=== PATIENT | female | born 1985 | race Caucasian/White ===

== ENCOUNTER 2019-05-12 18:34 | Inpatient (IN) | payer MEDICARE, MEDICAID ==
[~2019-05-12] VITALS: Ht 162.6 cm; Wt 59.5 kg
[2019-05-12] MEDS ORDERED: FLUO-191 PO (20:25)
[2019-05-12] MEDS ORDERED: ATOM40CA9 PO (20:25)
[2019-05-12] MEDS ORDERED: LURA40 PO (20:25)
[2019-05-12] MEDS ORDERED: OLAN7.5T2 PO (20:25)
[2019-05-12 21:30] LABS: BASOPHILS % (AUTO) 0.3 % (0.0-2.0); EOSINOPHILS % (AUTO) 0 % (1.0-6.0); HEMATOCRIT 42.4 % (36-46); HEMOGLOBIN 14.6 g/dL (12.0-16.0); LYMPHOCYTES # (AUTO) 1.7 K/uL (1.0-4.8); LYMPHOCYTES % (AUTO) 11.3 % (22.0-44.0); MEAN CORPUSCULAR HGB CONC 34.4 G/dL (31.0-37.0); MEAN CORPUSCULAR VOLUME 87 fL (80-100); MONOCYTES # (AUTO) 0.9 K/uL (0.1-1.0); MONOCYTES % (AUTO) 6.1 % (2.0-9.0); NEUTROPHILS # (AUTO) 12.2 K/uL (1.8-7.7); NEUTROPHILS % (AUTO) 82.3 % (40.0-70.0); PLATELET COUNT (AUTO) 268 K/uL (150-450); RED BLOOD CELL COUNT(AUTO) 4.86 MIL/uL (4.00-5.20); RED CELL DISTRIBUTION WIDTH 13.1 % (11.5-14.5)
[2019-05-12] MEDS ORDERED: SODIUM CHLORIDE 0.9% 2,200 ML IV ONE (21:30)
[2019-05-12] MEDS ORDERED: SODIUM CHLORIDE 0.9% 250 ML IV ONE (21:32)
[2019-05-12 21:40] LABS: CALCIUM, TOTAL 9.6 mg/dL (8.8-10.5); CREATININE 1.19 mg/dL (0.60-1.30)
[2019-05-12 21:46] LABS: BILIRUBIN,TOTAL 1.1 mg/dL (0.1-1.0); TOTAL PROTEIN, SERUM 8.4 g/dL (6.4-8.2)
[2019-05-12 22:03] LABS: CREATINE KINASE, TOTAL ONLY 214 U/L (26-192); HCG,QUANTITATIVE < 1 mIU/mL (0-6)
[2019-05-12] MEDS ORDERED: VANCOMYCIN HCL 1 GM/D5% WATER 200 ML IV ONE (22:30)
[2019-05-12] MEDS ORDERED: PIPERACILLIN/TAZO 3.375 GM/D5W 50 ML IV ONE (22:30)
[2019-05-12] MEDS ORDERED: IOVERSOL 350 MG/ML 150 ML VIAL ONE (22:31)
[2019-05-12] MEDS ORDERED: SODIUM CHLORIDE 0.9% 100 ML ONE (22:31)
[2019-05-12 22:45] LABS: ABG A-A DIFF O2 472.1 mmHg (10-20.0); ABG BASE EXCESS -5.6 mmol/L (-2.0-3.0); ABG CARBOXYHEMOGLOBIN 0.3 % (0.0-1.5); ABG HCO3 22.7 mmol/L (22.0-26.0); ABG METHEMOGLOBIN 0.4 % (0.0-1.5); ABG OXYGEN CONTENT 19.5 mL/dL (15.0-23.0); ABG OXYGEN SATURATION 99.3 % (95.0-98.0); ABG OXYHEMOGLOBIN 98.6 % (94.0-100.0); ABG TOTAL HEMOGLOBIN 13.7 G/dL (12.0-18.0); PO2, ARTERIAL BG 227.6 mmHg (92.0-100.0); SOURCE, BLOOD GAS ARTERIAL; TEMPERATURE, FAHRENHEIT, BG 98.6 FAHREN (96.0-98.6)
[2019-05-12 22:46] LABS: ABG PCO2 13 mmHg (35-45); ABG PH 7.666 (7.350-7.450); SITE, BLOOD GAS LFT RADIAL
[2019-05-12 22:47] LABS: O2 DEVICE,BLOOD GAS NON REBREATHER (ROOM AIR)
[2019-05-12 22:57] LABS: INR 1.1 (0.9-1.1); PROTHROMBIN TIME 11.4 SEC (9.4-11.6)
[2019-05-12] MEDS ORDERED: POTASSIUM CHLORIDE 20 MEQ ER TABLET PO ONE (23:15)
[2019-05-12] MEDS: POTASSIUM CHL 10 MEQ/WATER 50 ML IV SCH (23:15)
[2019-05-12 23:33] LABS: APPEARANCE,URINE CLEAR (CLEAR); GLUCOSE, URINE (UA) NEGATIVE (NEGATIVE); KETONES,URINE >=80 mg/dL (NEGATIVE); LEUKOCYTE ESTERASE ,URINE NEGATIVE (NEGATIVE); NITRATE,URINE NEGATIVE (NEGATIVE); OCCULT BLOOD,URINE NEGATIVE (NEGATIVE); PROTEIN,URINE POS 1+ (NEGATIVE)
[2019-05-12 23:36] LABS: BILIRUBIN,URINE PRELIM. POSITIVE (NEGATIVE)
[2019-05-12 23:37] LABS: AMPHET/METH SCREEN,URINE POSITIVE (NEGATIVE); BARBITURATE SCREEN, URINE NEGATIVE (NEGATIVE); BENZODIAZEPINES SCREEN,URINE NEGATIVE (NEGATIVE); CANNABINOID SCREEN,URINE NEGATIVE (NEGATIVE); COCAINE SCREEN,URINE NEGATIVE (NEGATIVE); METHADONE SCREEN, URINE NEGATIVE (NEGATIVE); OPIATE SCREEN,URINE POSITIVE (NEGATIVE); PHENCYCLIDINE SCREEN,URINE NEGATIVE (NEGATIVE)
[2019-05-12 23:40] LABS: BACTERIA,URINE None Seen /HPF (None Seen); FINE GRANULAR CASTS,URINE 0-2 /LPF (None Seen); RBC,URINE 0-2 /HPF (0-2); SQUAMOUS EPITHELIAL CELL,UR Few /LPF (None Seen)
[2019-05-13] MEDS: POTASSIUM CHL 10 MEQ/WATER 50 ML IV SCH ×3 (00:15→03:35)
[2019-05-13 01:04] LABS: D-DIMER 0.61 mg/L FEU (0.00-0.50)
[2019-05-13] MEDS ORDERED: CLINDAMYCIN 600 MG/D5% WATER 50 ML IV ONE (01:15)
[2019-05-13] MEDS ORDERED: ONDANSETRON HCL 4 MG/2 ML VIAL IVP PRN (01:30)
[2019-05-13] MEDS ORDERED: ACETAMINOPHEN 325 MG TABLET PO PRN (01:30)
[2019-05-13] MEDS ORDERED: 0.9% SODIUM CHLORIDE 10 ML SYRINGE IVP PRN (01:30)
[2019-05-13 03:48] VITALS: BP 141/94
[2019-05-13] MEDS ORDERED: INFLUENZA VIRUS VACCINE QVS 2019-20 (3YR+)/PF 60 MCG/0.5 ML SYRINGE IM ONE (06:00)
[2019-05-13 06:37] LABS: POTASSIUM 3.2 mmol/L (3.5-5.1)
[2019-05-13 07:38] VITALS: BP 142/92
[2019-05-13] MEDS ORDERED: POTASSIUM CHL 10 MEQ/WATER 50 ML IV PRN (08:30)
[2019-05-13] MEDS ORDERED: MAGNESIUM HYDROXIDE SUSPENSION 30 ML UDCUP PO PRN (08:30)
[2019-05-13] MEDS ORDERED: POTASSIUM CHLORIDE 20 MEQ ER TABLET PO PRN (08:30)
[2019-05-13 08:41] LABS: BASOPHILS % (AUTO) 0.3 % (0.0-2.0); EOSINOPHILS % (AUTO) 0.2 % (1.0-6.0); HEMATOCRIT 35.6 % (36-46); LYMPHOCYTES # (AUTO) 1.2 K/uL (1.0-4.8); LYMPHOCYTES % (AUTO) 10.4 % (22.0-44.0); MEAN CORPUSCULAR HEMOGLOBIN 29.6 pg (26.0-34.0); MEAN CORPUSCULAR HGB CONC 33.6 G/dL (31.0-37.0); MEAN CORPUSCULAR VOLUME 88 fL (80-100); MONOCYTES # (AUTO) 0.8 K/uL (0.1-1.0); MONOCYTES % (AUTO) 7.4 % (2.0-9.0); NEUTROPHILS # (AUTO) 9.1 K/uL (1.8-7.7); NEUTROPHILS % (AUTO) 81.7 % (40.0-70.0); PLATELET COUNT (AUTO) 206 K/uL (150-450); RED BLOOD CELL COUNT(AUTO) 4.04 MIL/uL (4.00-5.20); RED CELL DISTRIBUTION WIDTH 12.9 % (11.5-14.5)
[2019-05-13 08:45] LABS: ANION GAP 13 mmol/L (8-16); CALCIUM, TOTAL 7.7 mg/dL (8.8-10.5); CARBON DIOXIDE 17 mmol/L (22-29); CHLORIDE 104 mmol/L (98-107); CREATININE 0.92 mg/dL (0.60-1.30); GLOMERULAR FILTR. RATE CALC > 60 mL/min (>60); GLUCOSE,RANDOM 92 mg/dL (70-110); SODIUM SERUM 134 mmol/L (136-145); UREA NITROGEN, BLOOD 12 mg/dL (7-18)
[2019-05-13] MEDS ORDERED: SODIUM CHLORIDE 0.9% 1,000 ML IV ONE (09:45)
[2019-05-13] MEDS: FAMOTIDINE 20 MG TABLET PO SCH (09:53)
[2019-05-13] MEDS: LORazepam 2 MG/ML VIAL IVP PRN ×3 (09:53→20:30)
[2019-05-13 11:16] VITALS: BP 152/99
[2019-05-13] MEDS: ACETAMINOPHEN 325 MG TABLET PO PRN (13:22)
[2019-05-13 15:42] VITALS: BP 152/102
[2019-05-13 20:18] VITALS: BP 150/100
[2019-05-14 00:01] VITALS: BP 151/101
[2019-05-14] MEDS: LORazepam 2 MG/ML VIAL IVP PRN ×4 (00:42→21:52)
[2019-05-14 04:29] VITALS: BP 154/102
[2019-05-14] MEDS: FAMOTIDINE 20 MG TABLET PO SCH (08:54)
[2019-05-14] MEDS: ACETAMINOPHEN 325 MG TABLET PO PRN (08:54)
[2019-05-14 09:12] VITALS: BP 162/98
[2019-05-14 11:05] VITALS: BP 167/69
[2019-05-14] MEDS ORDERED: LORazepam 2 MG/ML VIAL IVP PRN (13:45)
[2019-05-14 15:31] VITALS: BP 155/64
[2019-05-14 19:34] VITALS: BP 145/70
[2019-05-15 04:45] VITALS: BP 139/81
[2019-05-15] MEDS: ACETAMINOPHEN 325 MG TABLET PO PRN (06:08)
[2019-05-15 08:50] VITALS: BP 123/78
[2019-05-15] MEDS: FAMOTIDINE 20 MG TABLET PO SCH (09:00)
[2019-05-15 11:09] VITALS: BP 142/95
[2019-05-15 12:28] LABS: BASOPHILS % (AUTO) 1.3 % (0.0-2.0); EOSINOPHILS % (AUTO) 3.9 % (1.0-6.0); HEMATOCRIT 36.3 % (36-46); HEMOGLOBIN 12.4 g/dL (12.0-16.0); LYMPHOCYTES # (AUTO) 1.3 K/uL (1.0-4.8); LYMPHOCYTES % (AUTO) 30.3 % (22.0-44.0); MEAN CORPUSCULAR HEMOGLOBIN 29.7 pg (26.0-34.0); MEAN CORPUSCULAR HGB CONC 34.2 G/dL (31.0-37.0); MEAN CORPUSCULAR VOLUME 87 fL (80-100); MONOCYTES # (AUTO) 0.3 K/uL (0.1-1.0); MONOCYTES % (AUTO) 7.6 % (2.0-9.0); NEUTROPHILS # (AUTO) 2.4 K/uL (1.8-7.7); NEUTROPHILS % (AUTO) 56.9 % (40.0-70.0); PLATELET COUNT (AUTO) 234 K/uL (150-450); RED BLOOD CELL COUNT(AUTO) 4.18 MIL/uL (4.00-5.20); RED CELL DISTRIBUTION WIDTH 13.2 % (11.5-14.5)
[2019-05-15 12:38] LABS: ANION GAP 12 mmol/L (8-16); CALCIUM, TOTAL 8.7 mg/dL (8.8-10.5); CARBON DIOXIDE 24 mmol/L (22-29); CHLORIDE 103 mmol/L (98-107); CREATININE 0.73 mg/dL (0.60-1.30); GLOMERULAR FILTR. RATE CALC > 60 mL/min (>60); GLUCOSE,RANDOM 113 mg/dL (70-110); POTASSIUM 3.6 mmol/L (3.5-5.1); SODIUM SERUM 139 mmol/L (136-145); UREA NITROGEN, BLOOD 8 mg/dL (7-18)
== END 2019-05-15 14:18 | disposition home or self-care (01) | DRG 918 ==
LOC: EMS 18:36 → 5S 05-13 01:30
PROVIDERS: ADMIT Internal Medicine; ATTEND Internal Medicine
DX: T43.621A Poisoning by amphetamines, accidental (unintentional), initial encounter (principal); I24.8 Other forms of acute ischemic heart disease; R65.10 Systemic inflammatory response syndrome (SIRS) of non-infectious origin without acute organ dysfunction; E87.3 Alkalosis; E87.6 Hypokalemia; F19.10 Other psychoactive substance abuse, uncomplicated; F15.90 Other stimulant use, unspecified, uncomplicated; Y92.89 Other specified places as the place of occurrence of the external cause; Z59.0 Homelessness
CPT/HCPCS: 36600; 70491; 71275; 82805; 83605; 83735; 84132; 85379; 87040; 90686; 93005; 93306; G0480; J2060; J2543; J3370; J3480; J3490; J7030; J7050

== ENCOUNTER 2019-09-13 17:25 | Emergency (ER) | payer MEDICARE, MEDICAID ==
[~2019-09-13] VITALS: Ht 167.6 cm; Wt 54.5 kg
[2019-09-13 19:11] VITALS: BP 132/98
== END 2019-09-13 19:44 | disposition home or self-care (01) ==
LOC: EMS 17:27
DX: F19.10 Other psychoactive substance abuse, uncomplicated (principal); F17.200 Nicotine dependence, unspecified, uncomplicated

== ENCOUNTER 2019-10-23 00:37 | Inpatient (IN) | payer MEDICARE, MEDICAID ==
[~2019-10-23] VITALS: Ht 170.2 cm; Wt 54.4 kg
[2019-10-23 06:00] VITALS: BP 126/74
[2019-10-23] MEDS: LORazepam 1 MG TABLET PO PRN ×2 (09:04→20:06)
[2019-10-23] MEDS: FLUoxetine HCL 20 MG CAPSULE PO SCH (12:36)
[2019-10-23] MEDS: LURASIDONE HCL 40 MG TABLET PO SCH (17:00)
[2019-10-23 19:57] VITALS: BP 115/70
[2019-10-23] MEDS: ZOLPIDEM TARTRATE 10 MG TABLET PO PRN (21:08)
[2019-10-24 07:18] VITALS: BP 121/69
[2019-10-24 08:35] VITALS: BP 126/73
[2019-10-24 08:37] LABS: RED BLOOD CELL COUNT(AUTO) 4.29 MIL/uL (4.00-5.20)
[2019-10-24 08:38] LABS: BASOPHILS % (AUTO) 1.1 % (0.0-2.0); EOSINOPHILS % (AUTO) 2.5 % (1.0-6.0); HEMATOCRIT 36.9 % (36-46); LYMPHOCYTES # (AUTO) 1.8 K/uL (1.0-4.8); LYMPHOCYTES % (AUTO) 22.5 % (22.0-44.0); MEAN CORPUSCULAR HEMOGLOBIN 28.1 pg (26.0-34.0); MEAN CORPUSCULAR HGB CONC 32.6 G/dL (31.0-37.0); MEAN CORPUSCULAR VOLUME 86 fL (80-100); MONOCYTES # (AUTO) 0.5 K/uL (0.1-1.0); MONOCYTES % (AUTO) 6.1 % (2.0-9.0); NEUTROPHILS # (AUTO) 5.5 K/uL (1.8-7.7); NEUTROPHILS % (AUTO) 67.8 % (40.0-70.0); PLATELET COUNT (AUTO) 503 K/uL (150-450); RED CELL DISTRIBUTION WIDTH 13.8 % (11.5-14.5)
[2019-10-24 08:50] LABS: HEMOGLOBIN A1C 5.4 % (3.8-5.6)
[2019-10-24] MEDS: OFLOXACIN 0.3% 5 ML OPHTHALMIC SOLUTION OD SCH ×3 (09:00→17:00)
[2019-10-24 09:15] LABS: ALANINE AMINOTRANSFERASE 50 U/L (12-78); ALBUMIN 2.8 g/dL (3.4-5.0); ALKALINE PHOSPHATASE 90 U/L (46-116); ANION GAP 9 mmol/L (8-16); ASPARTATE AMINOTRANSFERASE 23 U/L (15-37); BILIRUBIN,TOTAL 0.1 mg/dL (0.1-1.0); CALCIUM, TOTAL 8.7 mg/dL (8.8-10.5); CARBON DIOXIDE 26 mmol/L (22-29); CHLORIDE 103 mmol/L (98-107); CHOL/HDL RATIO 4.9 (3.9-5.7); CHOLESTEROL 210 mg/dL (131-200); CREATININE 0.82 mg/dL (0.60-1.30); FREE T4 (FREE THYROXINE) 0.99 ng/dL (0.76-1.46); GLOMERULAR FILTR. RATE CALC > 60 mL/min (>60); GLUCOSE,RANDOM 87 mg/dL (70-110); HDL CHOLESTEROL 43 mg/dL (40-60); LDL CHOL (CALC.) 147 mg/dL (0-130); POTASSIUM 4.3 mmol/L (3.5-5.1); SODIUM SERUM 138 mmol/L (136-145); THYROID STIMULATING HORMONE 0.97 uIU/mL (0.36-3.74); TOTAL PROTEIN, SERUM 7.1 g/dL (6.4-8.2); TRIGLYCERIDES 98 mg/dL (15-150); UREA NITROGEN, BLOOD 26 mg/dL (7-18)
[2019-10-24] MEDS: FLUoxetine HCL 20 MG CAPSULE PO SCH (09:53)
[2019-10-24] MEDS: LORazepam 1 MG TABLET PO PRN ×2 (10:07→12:55)
[2019-10-24] MEDS: HALOPERIDOL 5 MG TABLET PO PRN (10:07)
[2019-10-24 14:15] VITALS: BP 149/95
[2019-10-24] MEDS ORDERED: HALOPERIDOL LACTATE 5 MG/ML VIAL ONE (15:26)
[2019-10-24] MEDS ORDERED: DiphenhydrAMINE HCL 50 MG/ML VIAL ONE (15:26)
[2019-10-24] MEDS ORDERED: LORazepam 2 MG/ML VIAL ONE (15:26)
[2019-10-24] MEDS ORDERED: HALOPERIDOL LACTATE 5 MG/ML VIAL IM ONE (15:30)
[2019-10-24] MEDS ORDERED: DiphenhydrAMINE HCL 50 MG/ML VIAL IM ONE (15:30)
[2019-10-24] MEDS ORDERED: LORazepam 2 MG/ML VIAL IM ONE (15:30)
[2019-10-24] MEDS: MUPIROCIN CALCIUM 2% 22 GM OINTMENT NASAL SCH (17:00)
[2019-10-24] MEDS: LURASIDONE HCL 40 MG TABLET PO SCH (17:30)
[2019-10-25] MEDS: MUPIROCIN CALCIUM 2% 22 GM OINTMENT NASAL SCH ×2 (08:24→17:00)
[2019-10-25] MEDS: FLUoxetine HCL 20 MG CAPSULE PO SCH (08:24)
[2019-10-25] MEDS: OFLOXACIN 0.3% 5 ML OPHTHALMIC SOLUTION OD SCH ×3 (08:25→17:00)
[2019-10-25] MEDS: HALOPERIDOL 5 MG TABLET PO PRN (08:26)
[2019-10-25] MEDS: LORazepam 1 MG TABLET PO PRN (08:26)
[2019-10-25] MEDS ORDERED: DiphenhydrAMINE HCL 50 MG/ML VIAL IM ONE (12:45)
[2019-10-25] MEDS ORDERED: HALOPERIDOL LACTATE 5 MG/ML VIAL IM ONE (12:45)
[2019-10-25] MEDS ORDERED: LORazepam 2 MG/ML VIAL IM ONE (12:45)
[2019-10-25 16:15] VITALS: BP 119/59
[2019-10-25] MEDS: LURASIDONE HCL 40 MG TABLET PO SCH (17:30)
[2019-10-26] MEDS: LORazepam 1 MG TABLET PO PRN (09:03)
[2019-10-26] MEDS: HALOPERIDOL 5 MG TABLET PO PRN (09:03)
[2019-10-26] MEDS: FLUoxetine HCL 20 MG CAPSULE PO SCH (09:03)
[2019-10-26] MEDS: OFLOXACIN 0.3% 5 ML OPHTHALMIC SOLUTION OD SCH ×3 (09:04→17:26)
[2019-10-26] MEDS: MUPIROCIN CALCIUM 2% 22 GM OINTMENT NASAL SCH ×2 (09:04→17:26)
[2019-10-26] MEDS ORDERED: LORazepam 2 MG/ML VIAL IM ONE (12:45)
[2019-10-26] MEDS ORDERED: DiphenhydrAMINE HCL 50 MG/ML VIAL IM ONE (12:45)
[2019-10-26] MEDS ORDERED: HALOPERIDOL LACTATE 5 MG/ML VIAL IM ONE (12:45)
[2019-10-26] MEDS ORDERED: LORazepam 2 MG/ML VIAL ONE (12:49)
[2019-10-26] MEDS ORDERED: HALOPERIDOL LACTATE 5 MG/ML VIAL ONE (12:50)
[2019-10-26] MEDS ORDERED: DiphenhydrAMINE HCL 50 MG/ML VIAL ONE (12:50)
[2019-10-26 17:13] VITALS: BP 131/75
[2019-10-26] MEDS: LURASIDONE HCL 40 MG TABLET PO SCH (17:26)
[2019-10-27] MEDS: LORazepam 1 MG TABLET PO PRN ×2 (08:08→16:13)
[2019-10-27] MEDS: HALOPERIDOL 5 MG TABLET PO PRN ×2 (08:08→16:13)
[2019-10-27] MEDS: MUPIROCIN CALCIUM 2% 22 GM OINTMENT NASAL SCH ×2 (09:00→16:10)
[2019-10-27] MEDS: OFLOXACIN 0.3% 5 ML OPHTHALMIC SOLUTION OD SCH ×3 (09:20→16:10)
[2019-10-27] MEDS: FLUoxetine HCL 20 MG CAPSULE PO SCH (09:20)
[2019-10-27 09:34] VITALS: BP 121/64
[2019-10-27] MEDS: LURASIDONE HCL 40 MG TABLET PO SCH (17:16)
[2019-10-27 17:19] VITALS: BP 110/62
[2019-10-28] MEDS: LORazepam 1 MG TABLET PO PRN ×2 (04:53→14:35)
[2019-10-28 06:09] VITALS: BP 121/67
[2019-10-28] MEDS: FLUoxetine HCL 20 MG CAPSULE PO SCH (08:02)
[2019-10-28] MEDS: HALOPERIDOL 5 MG TABLET PO PRN ×2 (08:02→14:35)
[2019-10-28] MEDS: MUPIROCIN CALCIUM 2% 22 GM OINTMENT NASAL SCH ×2 (08:04→16:22)
[2019-10-28] MEDS: OFLOXACIN 0.3% 5 ML OPHTHALMIC SOLUTION OD SCH ×3 (09:13→16:22)
[2019-10-28 09:36] VITALS: BP 116/53
[2019-10-28 17:00] VITALS: BP 110/71
[2019-10-28] MEDS ORDERED: BISACODYL 5 MG EC TABLET PO PRN (18:45)
[2019-10-28] MEDS: LURASIDONE HCL 40 MG TABLET PO SCH (19:35)
[2019-10-29] MEDS: FLUoxetine HCL 20 MG CAPSULE PO SCH (08:05)
[2019-10-29] MEDS: MUPIROCIN CALCIUM 2% 22 GM OINTMENT NASAL SCH (08:06)
[2019-10-29] MEDS: HALOPERIDOL 5 MG TABLET PO PRN ×2 (08:06→14:20)
[2019-10-29] MEDS: OFLOXACIN 0.3% 5 ML OPHTHALMIC SOLUTION OD SCH ×3 (08:06→16:20)
[2019-10-29] MEDS: LORazepam 1 MG TABLET PO PRN ×2 (08:06→14:20)
[2019-10-29 08:37] VITALS: BP 140/65
[2019-10-29] MEDS: LURASIDONE HCL 40 MG TABLET PO SCH (19:31)
[2019-10-29 20:16] VITALS: BP 125/84
[2019-10-30] MEDS: ZOLPIDEM TARTRATE 10 MG TABLET PO PRN (01:35)
[2019-10-30 01:45] VITALS: BP 116/67
[2019-10-30] MEDS: LORazepam 1 MG TABLET PO PRN ×3 (06:41→16:34)
[2019-10-30] MEDS: HALOPERIDOL 5 MG TABLET PO PRN ×2 (06:41→11:49)
[2019-10-30 09:42] VITALS: BP 100/48
[2019-10-30] MEDS: FLUoxetine HCL 20 MG CAPSULE PO SCH (10:05)
[2019-10-30] MEDS: OFLOXACIN 0.3% 5 ML OPHTHALMIC SOLUTION OD SCH ×3 (10:06→16:02)
[2019-10-30] MEDS: LURASIDONE HCL 40 MG TABLET PO SCH (16:33)
[2019-10-30 17:44] VITALS: BP 116/62
[2019-10-31] MEDS: MULTIVITAMINS WITH MINERALS, THERAPEUTIC TABLET PO SCH (08:09)
[2019-10-31] MEDS: FLUoxetine HCL 20 MG CAPSULE PO SCH (08:10)
[2019-10-31] MEDS: OFLOXACIN 0.3% 5 ML OPHTHALMIC SOLUTION OD SCH ×3 (08:13→16:04)
[2019-10-31 08:38] VITALS: BP 102/51
[2019-10-31 12:57] VITALS: BP 110/69
[2019-10-31] MEDS: LORazepam 1 MG TABLET PO PRN ×2 (12:59→16:12)
[2019-10-31] MEDS: LURASIDONE HCL 40 MG TABLET PO SCH (16:03)
[2019-10-31 16:28] VITALS: BP 110/72
[2019-11-01] MEDS: LORazepam 1 MG TABLET PO PRN ×2 (05:23→11:17)
[2019-11-01 06:10] VITALS: BP 110/71
[2019-11-01] MEDS: MULTIVITAMINS WITH MINERALS, THERAPEUTIC TABLET PO SCH (08:47)
[2019-11-01] MEDS: OFLOXACIN 0.3% 5 ML OPHTHALMIC SOLUTION OD SCH ×3 (08:49→16:57)
[2019-11-01] MEDS: FLUoxetine HCL 20 MG CAPSULE PO SCH (08:49)
[2019-11-01 11:15] VITALS: BP 118/76
[2019-11-01] MEDS: HALOPERIDOL 5 MG TABLET PO PRN (11:17)
[2019-11-01] MEDS: LURASIDONE HCL 40 MG TABLET PO SCH (16:57)
[2019-11-01 20:54] VITALS: BP 101/58
[2019-11-02 04:15] VITALS: BP 134/93
[2019-11-02] MEDS: LORazepam 1 MG TABLET PO PRN ×2 (04:17→16:53)
[2019-11-02 08:00] VITALS: BP 93/48
[2019-11-02] MEDS: OFLOXACIN 0.3% 5 ML OPHTHALMIC SOLUTION OD SCH ×3 (08:15→17:30)
[2019-11-02] MEDS: MULTIVITAMINS WITH MINERALS, THERAPEUTIC TABLET PO SCH (08:16)
[2019-11-02] MEDS: FLUoxetine HCL 20 MG CAPSULE PO SCH (08:16)
[2019-11-02] MEDS: HALOPERIDOL 5 MG TABLET PO PRN (16:53)
[2019-11-02 17:03] VITALS: BP 112/66
[2019-11-02] MEDS: LURASIDONE HCL 40 MG TABLET PO SCH (17:29)
[2019-11-03 02:00] VITALS: BP 112/67
[2019-11-03] MEDS: MULTIVITAMINS WITH MINERALS, THERAPEUTIC TABLET PO SCH (08:10)
[2019-11-03] MEDS: OFLOXACIN 0.3% 5 ML OPHTHALMIC SOLUTION OD SCH (08:11)
[2019-11-03] MEDS: FLUoxetine HCL 20 MG CAPSULE PO SCH (08:11)
[2019-11-03 09:12] VITALS: BP 102/60
[2019-11-03] MEDS: LORazepam 1 MG TABLET PO PRN (09:14)
[2019-11-03] MEDS ORDERED: FLUO-191 PO (11:50)
[2019-11-03] MEDS ORDERED: LURA40TA2 PO (11:50)
[2019-11-03] MEDS ORDERED: MULT-1239 PO (12:07)
== END 2019-11-03 13:25 | DRG 885 ==
LOC: B2S 03:16 → B2X 14:30 → 3EX 10-24 13:38
PROVIDERS: ADMIT Psychiatry & Neurology Child & Adolescent Psychiatry; ATTEND Psychiatry & Neurology Child & Adolescent Psychiatry
DX: F25.1 Schizoaffective disorder, depressive type (principal); E46 Unspecified protein-calorie malnutrition; Z68.1 Body mass index [BMI] 19.9 or less, adult; D72.819 Decreased white blood cell count, unspecified; E78.00 Pure hypercholesterolemia, unspecified; E78.5 Hyperlipidemia, unspecified; F15.90 Other stimulant use, unspecified, uncomplicated; K59.00 Constipation, unspecified; E87.6 Hypokalemia; Z59.0 Homelessness; Z91.14 Patient's other noncompliance with medication regimen; Z79.899 Other long term (current) drug therapy
CPT/HCPCS: 80074; 83036; 84436; 84439; 84443; 87081; G0378; G0480; J1200; J1630; J2060

== ENCOUNTER 2020-04-18 18:05 | Emergency (ER) | payer MEDICARE, MEDICAID ==
[~2020-04-18] VITALS: Ht 170.2 cm; Wt 68.2 kg
[~2020-04-18 18:05] MED LIST: AZIT-84 PO; FLUO-191 PO; LURA40TA2 PO; LURA60TA PO; MULT-1239 PO; PANT-31 PO
[2020-04-18] MEDS ORDERED: DIVA-111 PO (19:01)
[2020-04-18] MEDS ORDERED: HALO2 PO (19:01)
[2020-04-18] MEDS ORDERED: QUET200T PO (19:01)
[2020-04-18] MEDS ORDERED: DIPH50CA35 PO (19:01)
[2020-04-18 19:20] LABS: HEMATOCRIT 38.3 % (36-46); HEMOGLOBIN 12.8 g/dL (12.0-16.0); MEAN CORPUSCULAR HEMOGLOBIN 28.9 pg (26.0-34.0); MEAN CORPUSCULAR HGB CONC 33.4 G/dL (31.0-37.0); MEAN CORPUSCULAR VOLUME 86 fL (80-100); PLATELET COUNT (AUTO) 222 K/uL (150-450); RED BLOOD CELL COUNT(AUTO) 4.43 MIL/uL (4.00-5.20); RED CELL DISTRIBUTION WIDTH 14.8 % (11.5-14.5)
[2020-04-18 19:25] LABS: ANION GAP 4 mmol/L (8-16); CALCIUM, TOTAL 8.8 mg/dL (8.8-10.5); CARBON DIOXIDE 30 mmol/L (22-29); CHLORIDE 103 mmol/L (98-107); CREATININE 1.07 mg/dL (0.60-1.30); GLOMERULAR FILTR. RATE CALC 58 mL/min (>60); GLUCOSE,RANDOM 103 mg/dL (70-110); SODIUM SERUM 137 mmol/L (136-145); UREA NITROGEN, BLOOD 20 mg/dL (7-18)
[2020-04-18 19:36] LABS: ALANINE AMINOTRANSFERASE 18 U/L (12-78); ALBUMIN 3.4 g/dL (3.4-5.0); ALKALINE PHOSPHATASE 59 U/L (46-116); ASPARTATE AMINOTRANSFERASE 13 U/L (15-37); BILIRUBIN,TOTAL 0.1 mg/dL (0.1-1.0); HCG,QUANTITATIVE 1 mIU/mL (0-6); TOTAL PROTEIN, SERUM 6.8 g/dL (6.4-8.2); VALPROIC ACID 13 mcg/mL (50-100)
[2020-04-18 21:11] VITALS: BP 110/66
[2020-04-18 21:29] LABS: BAND NEUTROPHILS % (MANUAL) 2 % (0-5); BASOPHILS % (MANUAL) 1 % (0-2); EOSINOPHILS % (MANUAL) 5 % (1-6); LYMPHOCYTES % (MANUAL) 24 % (22-44); METAMYELOCYTES % 3 % (0-0); MONOCYTES % (MANUAL) 8 % (2-9); MYELOCYTES % 2 % (0-0); SEGMENTED NEUTROPHILS % 55 % (40-70)
== END 2020-04-18 22:15 | disposition home or self-care (01) ==
LOC: EMS 18:05
DX: G24.02 Drug induced acute dystonia (principal); F25.9 Schizoaffective disorder, unspecified; F31.9 Bipolar disorder, unspecified; E78.00 Pure hypercholesterolemia, unspecified; F17.210 Nicotine dependence, cigarettes, uncomplicated; F19.90 Other psychoactive substance use, unspecified, uncomplicated
CPT/HCPCS: 36415; 80053; 80164; 84702; 85025; 99283; G0480

== ENCOUNTER 2020-07-23 09:16 | Inpatient (IN) | payer MEDICARE, MEDICAID ==
[~2020-07-23] VITALS: Ht 165.1 cm; Wt 61.2 kg
[~2020-07-23 09:16] MED LIST changes: -AZIT-84 PO; +DIPH50CA35 PO; +DIVA-111 PO; +HALO2 PO; -LURA40TA2 PO; -LURA60TA PO; -MULT-1239 PO; -PANT-31 PO; +QUET200T PO
[2020-07-23] MEDS ORDERED: HALOPERIDOL LACTATE 5 MG/ML VIAL IM ONE (11:15)
[2020-07-23] MEDS ORDERED: LORazepam 2 MG/ML VIAL IM ONE (11:15)
[2020-07-23 14:29] LABS: BASOPHILS % (AUTO) 0.7 % (0.0-2.0); EOSINOPHILS % (AUTO) 2.3 % (1.0-6.0); HEMATOCRIT 37.5 % (36-46); LYMPHOCYTES # (AUTO) 2.1 K/uL (1.0-4.8); LYMPHOCYTES % (AUTO) 27.9 % (22.0-44.0); MEAN CORPUSCULAR HEMOGLOBIN 27.5 pg (26.0-34.0); MEAN CORPUSCULAR HGB CONC 32.1 G/dL (31.0-37.0); MEAN CORPUSCULAR VOLUME 86 fL (80-100); MONOCYTES # (AUTO) 0.4 K/uL (0.1-1.0); MONOCYTES % (AUTO) 5.5 % (2.0-9.0); NEUTROPHILS # (AUTO) 4.7 K/uL (1.8-7.7); NEUTROPHILS % (AUTO) 63.6 % (40.0-70.0); PLATELET COUNT (AUTO) 320 K/uL (150-450); RED BLOOD CELL COUNT(AUTO) 4.37 MIL/uL (4.00-5.20); RED CELL DISTRIBUTION WIDTH 16.3 % (11.5-14.5)
[2020-07-23 14:45] LABS: ANION GAP 7 mmol/L (8-16); CALCIUM, TOTAL 8.9 mg/dL (8.8-10.5); CARBON DIOXIDE 28 mmol/L (22-29); CHLORIDE 105 mmol/L (98-107); CREATININE 0.86 mg/dL (0.60-1.30); GLOMERULAR FILTR. RATE CALC > 60 mL/min (>60); GLUCOSE,RANDOM 104 mg/dL (70-110); POTASSIUM 3.9 mmol/L (3.5-5.1); SODIUM SERUM 140 mmol/L (136-145); UREA NITROGEN, BLOOD 19 mg/dL (7-18)
[2020-07-23 14:50] LABS: ALANINE AMINOTRANSFERASE 19 U/L (12-78); ALBUMIN 3.2 g/dL (3.4-5.0); ALKALINE PHOSPHATASE 76 U/L (46-116); ASPARTATE AMINOTRANSFERASE 27 U/L (15-37); BILIRUBIN,TOTAL 0.2 mg/dL (0.1-1.0); TOTAL PROTEIN, SERUM 7.3 g/dL (6.4-8.2)
[2020-07-23 15:12] LABS: ACETAMINOPHEN < 2 mcg/mL (10-30)
[2020-07-23 15:13] LABS: SALICYLATE < 2.8 mg/dL (2.8-20.0)
[2020-07-23 15:26] LABS: VALPROIC ACID < 3 mcg/mL (50-100)
[2020-07-23 16:19] LABS: HCG,QUANTITATIVE 1 mIU/mL (0-6)
[2020-07-23 16:29] LABS: COVID AG,FIA SOURCE NASOPHARYNGEAL
[2020-07-23] MEDS ORDERED: ZOLPIDEM TARTRATE 10 MG TABLET PO PRN (16:30)
[2020-07-23 19:15] VITALS: BP 107/62
[2020-07-24 00:02] VITALS: BP 102/61
[2020-07-24] MEDS: LORazepam 2 MG TABLET PO PRN ×2 (08:00→13:21)
[2020-07-24] MEDS: HALOPERIDOL 5 MG TABLET PO PRN ×2 (08:00→13:22)
[2020-07-24 08:30] VITALS: BP 125/74
[2020-07-24 16:15] VITALS: BP 127/73
[2020-07-24] MEDS: DIVALPROEX SODIUM 500 MG DR TABLET PO SCH (16:37)
[2020-07-24] MEDS: QUEtiapine FUMARATE 200 MG TABLET PO SCH (20:40)
[2020-07-25 05:07] VITALS: BP 117/71
[2020-07-25] MEDS: FLUoxetine HCL 20 MG CAPSULE PO SCH (08:02)
[2020-07-25] MEDS: DIVALPROEX SODIUM 500 MG DR TABLET PO SCH ×2 (08:03→16:33)
[2020-07-25 08:19] VITALS: BP 112/64
[2020-07-25] MEDS: LORazepam 2 MG TABLET PO PRN (08:22)
[2020-07-25] MEDS: HALOPERIDOL 5 MG TABLET PO PRN (09:23)
[2020-07-25] MEDS ORDERED: HALOPERIDOL LACTATE 5 MG/ML VIAL ONE (11:40)
[2020-07-25] MEDS ORDERED: LORazepam 2 MG/ML VIAL ONE (11:41)
[2020-07-25] MEDS ORDERED: DiphenhydrAMINE HCL 50 MG/ML VIAL ONE (11:41)
[2020-07-25] MEDS ORDERED: HALOPERIDOL LACTATE 5 MG/ML VIAL IM ONE (12:00)
[2020-07-25] MEDS ORDERED: DiphenhydrAMINE HCL 50 MG/ML VIAL IM ONE (12:00)
[2020-07-25] MEDS ORDERED: LORazepam 2 MG/ML VIAL IM ONE (12:00)
[2020-07-25 16:16] VITALS: BP 121/53
[2020-07-25] MEDS: QUEtiapine FUMARATE 200 MG TABLET PO SCH (20:29)
[2020-07-26] MEDS ORDERED: DiphenhydrAMINE HCL 50 MG/ML VIAL IM ONE (05:30)
[2020-07-26] MEDS ORDERED: LORazepam 2 MG/ML VIAL IM ONE (05:30)
[2020-07-26] MEDS ORDERED: HALOPERIDOL LACTATE 5 MG/ML VIAL IM ONE (05:30)
[2020-07-26] MEDS: FLUoxetine HCL 20 MG CAPSULE PO SCH (08:14)
[2020-07-26] MEDS: DIVALPROEX SODIUM 500 MG DR TABLET PO SCH ×2 (08:14→16:31)
[2020-07-26] MEDS: LORazepam 2 MG TABLET PO PRN (12:03)
[2020-07-26] MEDS: HALOPERIDOL 5 MG TABLET PO PRN (12:03)
[2020-07-26 12:05] VITALS: BP 125/71
[2020-07-26 16:08] VITALS: BP 122/71
[2020-07-26] MEDS: OLANZapine 5 MG TABLET PO SCH (16:32)
[2020-07-26] MEDS: QUEtiapine FUMARATE 200 MG TABLET PO SCH (20:38)
[2020-07-27] MEDS: LORazepam 2 MG TABLET PO PRN ×2 (04:12→14:31)
[2020-07-27] MEDS: HALOPERIDOL 5 MG TABLET PO PRN ×3 (04:12→23:30)
[2020-07-27 04:22] VITALS: BP 106/79
[2020-07-27 08:14] VITALS: BP 123/66
[2020-07-27] MEDS: FLUoxetine HCL 20 MG CAPSULE PO SCH (08:15)
[2020-07-27] MEDS: DIVALPROEX SODIUM 500 MG DR TABLET PO SCH ×2 (08:15→16:54)
[2020-07-27] MEDS: OLANZapine 5 MG TABLET PO SCH ×2 (08:15→16:54)
[2020-07-27] MEDS ORDERED: ACETAMINOPHEN 325 MG TABLET PO PRN (11:45)
[2020-07-27 14:31] VITALS: BP 111/68
[2020-07-27 15:53] LABS: APPEARANCE,URINE CLOUDY (CLEAR); BILIRUBIN,URINE NEGATIVE (NEGATIVE); GLUCOSE, URINE (UA) NEGATIVE (NEGATIVE); KETONES,URINE TRACE mg/dL (NEGATIVE); LEUKOCYTE ESTERASE ,URINE SMALL (NEGATIVE); NITRATE,URINE NEGATIVE (NEGATIVE); OCCULT BLOOD,URINE NEGATIVE (NEGATIVE); PH,URINE 7.5 (5.0-8.0); PROTEIN,URINE NEGATIVE (NEGATIVE)
[2020-07-27 15:59] LABS: AMPHET/METH SCREEN,URINE NEGATIVE (NEGATIVE); BARBITURATE SCREEN, URINE NEGATIVE (NEGATIVE); BENZODIAZEPINES SCREEN,URINE NEGATIVE (NEGATIVE); CANNABINOID SCREEN,URINE NEGATIVE (NEGATIVE); COCAINE SCREEN,URINE NEGATIVE (NEGATIVE); METHADONE SCREEN, URINE NEGATIVE (NEGATIVE); OPIATE SCREEN,URINE NEGATIVE (NEGATIVE); PHENCYCLIDINE SCREEN,URINE NEGATIVE (NEGATIVE)
[2020-07-27 16:02] LABS: BACTERIA,URINE Few /HPF (None Seen); CALCIUM OXALATE CRYSTALS,UR Many /LPF (None Seen); RBC,URINE 0-2 /HPF (0-2); SQUAMOUS EPITHELIAL CELL,UR Many /LPF (None Seen)
[2020-07-27 16:07] VITALS: BP 109/56
[2020-07-27] MEDS: QUEtiapine FUMARATE 200 MG TABLET PO SCH (20:34)
[2020-07-28] MEDS: DIVALPROEX SODIUM 500 MG DR TABLET PO SCH ×2 (08:25→16:28)
[2020-07-28] MEDS: FLUoxetine HCL 20 MG CAPSULE PO SCH (08:26)
[2020-07-28] MEDS: OLANZapine 5 MG TABLET PO SCH ×2 (08:26→16:28)
[2020-07-28 09:17] LABS: COVID AG,FIA SOURCE NASAL SWAB
[2020-07-28 16:07] VITALS: BP 103/56
[2020-07-28] MEDS: QUEtiapine FUMARATE 200 MG TABLET PO SCH (20:30)
[2020-07-29 06:25] VITALS: BP 110/79
[2020-07-29] MEDS: LORazepam 2 MG TABLET PO PRN (08:29)
[2020-07-29] MEDS: HALOPERIDOL 5 MG TABLET PO PRN (08:29)
[2020-07-29] MEDS: FLUoxetine HCL 20 MG CAPSULE PO SCH (08:29)
[2020-07-29] MEDS: OLANZapine 5 MG TABLET PO SCH ×2 (08:29→17:00)
[2020-07-29] MEDS: DIVALPROEX SODIUM 500 MG DR TABLET PO SCH ×2 (08:30→17:00)
[2020-07-29 09:48] VITALS: BP 105/62
[2020-07-29 17:04] VITALS: BP 102/69
[2020-07-29] MEDS: QUEtiapine FUMARATE 200 MG TABLET PO SCH (20:33)
[2020-07-30 02:17] VITALS: BP 123/74
[2020-07-30 08:32] VITALS: BP 126/77
[2020-07-30] MEDS: DIVALPROEX SODIUM 500 MG DR TABLET PO SCH ×3 (08:44→16:23)
[2020-07-30] MEDS: OLANZapine 5 MG TABLET PO SCH ×2 (08:45→16:21)
[2020-07-30] MEDS: FLUoxetine HCL 20 MG CAPSULE PO SCH (08:45)
[2020-07-30 16:12] VITALS: BP 122/80
[2020-07-30] MEDS: QUEtiapine FUMARATE 200 MG TABLET PO SCH (20:01)
[2020-07-31 05:19] VITALS: BP 118/76
[2020-07-31] MEDS: FLUoxetine HCL 20 MG CAPSULE PO SCH (08:27)
[2020-07-31] MEDS: OLANZapine 5 MG TABLET PO SCH ×2 (08:27→16:42)
[2020-07-31] MEDS: DIVALPROEX SODIUM 500 MG DR TABLET PO SCH ×2 (08:27→16:42)
[2020-07-31 08:32] VITALS: BP 106/66
[2020-07-31 08:35] LABS: CHOL/HDL RATIO 3.8 (3.9-5.7)
[2020-07-31 16:10] VITALS: BP 103/60
[2020-07-31] MEDS: QUEtiapine FUMARATE 200 MG TABLET PO SCH (21:00)
[2020-08-01 01:46] VITALS: BP 117/75
[2020-08-01 08:44] VITALS: BP 106/68
[2020-08-01] MEDS: DIVALPROEX SODIUM 500 MG DR TABLET PO SCH (08:44)
[2020-08-01] MEDS: FLUoxetine HCL 20 MG CAPSULE PO SCH (08:44)
[2020-08-01] MEDS: OLANZapine 5 MG TABLET PO SCH ×2 (08:44→16:37)
[2020-08-01] MEDS: GABAPENTIN 300 MG CAPSULE PO SCH ×2 (09:30→16:37)
[2020-08-01 16:11] VITALS: BP 121/77
[2020-08-01] MEDS: QUEtiapine FUMARATE 200 MG TABLET PO SCH (20:34)
[2020-08-02 02:43] VITALS: BP 114/65
[2020-08-02 08:17] VITALS: BP 101/60
[2020-08-02] MEDS: GABAPENTIN 300 MG CAPSULE PO SCH ×2 (08:36→16:28)
[2020-08-02] MEDS: FLUoxetine HCL 20 MG CAPSULE PO SCH (08:36)
[2020-08-02] MEDS: OLANZapine 5 MG TABLET PO SCH ×2 (08:36→16:28)
[2020-08-02 16:19] VITALS: BP 103/66
[2020-08-02] MEDS: QUEtiapine FUMARATE 200 MG TABLET PO SCH (20:29)
[2020-08-03 04:50] VITALS: BP 111/64
[2020-08-03] MEDS: OLANZapine 5 MG TABLET PO SCH (08:10)
[2020-08-03] MEDS: FLUoxetine HCL 20 MG CAPSULE PO SCH (08:10)
[2020-08-03] MEDS: GABAPENTIN 300 MG CAPSULE PO SCH (08:10)
[2020-08-03 08:24] VITALS: BP 115/65
[2020-08-03] MEDS ORDERED: GABA-1181 PO (12:18)
[2020-08-03] MEDS ORDERED: OLAN5TAB2 PO (12:18)
== END 2020-08-03 15:15 | disposition home or self-care (01) | DRG 885 ==
LOC: EMS 09:23 → B2X 17:22
PROVIDERS: ADMIT Psychiatry & Neurology Psychiatry; ATTEND Psychiatry & Neurology Psychiatry
DX: F20.0 Paranoid schizophrenia (principal); B18.2 Chronic viral hepatitis C; Z59.0 Homelessness; E86.0 Dehydration; E78.5 Hyperlipidemia, unspecified; E78.00 Pure hypercholesterolemia, unspecified; F11.90 Opioid use, unspecified, uncomplicated; Z20.822 Contact with and (suspected) exposure to COVID-19; Z91.14 Patient's other noncompliance with medication regimen; Z87.891 Personal history of nicotine dependence
CPT/HCPCS: 87081; 87086; 87426; 99291; G0480; G0481; J1200; J1630; J2060